=== PATIENT | female | born 1975 | race Two or more races ===

== ENCOUNTER 2025-06-12 19:13 | Emergency (ER) | payer MEDICAID, SELFPAY ==
[2025-06-12 19:31] VITALS: BP 129/61; PULSE 88; RESP 32; TEMP 36.9; O2SAT 98; BMI 30.2
--- NOTE | 2025-06-12 19:57 | PD.EDUPEX ---
Upper Extremity Injury RME/HPI General Chief Complaint: Extremity Injury, Upper Stated Complaint: SLIPPED AND FELL, RIGHT SHOULDER INJURY Time Seen by Provider: 06/12/25 19:58 Arrival date/time: 06/12/25 19:13 RME / HPI RME / HPI narrative: DR. HENAO MAIN ED EVALUATION: Patient with Hx of previous right shoulder dislocation s/p mechanical fall having sustained blunt trauma to the right shoulder and suspected recurrent dislocation. No LOC, head trauma, or other sustained injury. PMH: Negative PSH: , Shoulder stabilization surgery, Allergies: None Social: Non-smoker, Non-drinker, No illicit drug abuse Related Data Previous Rx's ?Medication ?Instructions ?Recorded naproxen 250 mg tablet 250 mg PO BID PRN pain 5 days #10 06/12/25 tabs Allergies Allergy/AdvReac Type Severity Reaction Status Date / Time No Known Allergies Allergy Verified 06/12/25 19:15 Review of Systems Review of Systems Systems Reviewed: All systems reviewed, normal except as documented ED Exam Narrative Physical exam: GEN. APPEARANCE: The patient is alert awake oriented X-3 under moderate distress c/o right should pain, right shoulder held in adduction, does not look ill/toxic. Patient has good eye contact. Patient is cooperative. VITALS: All vitals were reviewed and the pulse ox is 98%, which is normal according to my interpretation HEENT: Normocephalic, atraumatic and nontender. Pupils are equal and reactive. Oral mucosa is moist. NECK: Supple, nontender, no meningismus, no JVD. There is no thyromegaly and no lymphadenopathy. CHEST: Nontender on palpation no deformity and no crepitus. CARDIOVASCULAR: Heart regular rhythm, no murmur or gallop rub or extra beats. LUNGS: Clear to auscultation bilaterally with symmetrical chest rise. No laboring tachypnea or wheezing. No intercostal subcostal retraction. No rales and no rhonchi. ABDOMEN: Soft, flat, nontender to palpation, no guarding or rebound tenderness. There are no abnormal masses palpated. No pulsatile masses or bruits. Active and normal bowel sounds. EXTREMITIES: Right shoulder with step-off deformity at acromion, anterior prominence at humeral head, guards any movement of right shoulder, distal function intact. No edema. No cyanosis. Patient is able to move all other extremities well. SKIN: Warm and dry, no rashes noted. MUSCULOSKELETAL: No lumbar or midline bony tenderness. There is no CVA tenderness. No paraspinal muscle spasm or tenderness. NEURO: Cranial nerves II through XII grossly intact. There are no focal neurologic deficits noted. GCS is 15 PSYCHIATRIC: Patient is in normal mood and affect, cooperative. LYMPHATICS: No major lymphadenopathy noted. Course Quality Measures none Orders Category Date Time Status Insert IV NOW Care 06/12/25 19:59 Completed XR shoulder RT min 2V Stat Exams 06/12/25 20:49 Completed XR shoulder RT min 2V Stat Exams 06/12/25 21:59 Completed Midazolam Inj [Versed Inj] Med 06/12/25 19:58 Discontinued 2 mg IVP X1 ONE Morphine* Inj Med 06/12/25 19:59 Discontinued 4 mg IVP X1 ONE Vital Signs Vital signs: Vital Signs Temperature 98.4 F 06/12/25 19:31 Pulse Rate 88 06/12/25 19:31 Respiratory Rate 32 H 06/12/25 19:31 Blood Pressure 129/61 06/12/25 19:31 Pulse Oximetry (%) 98 06/12/25 19:31 Oxygen Delivery Method Room Air 06/12/25 19:31 Extremity Injury MDM Narrative MDM Narrative:: Scribe Attestation: Debra Edwards am scribing for and in the presence of Dr. Henao. Provider Notation: Although this document has been carefully reviewed, there may still be some phonetic and other typographical errors. These errors are purely grammatical due to imperfections in the software program and should not be construed in any way to compromise the substance of the patient's medical care during this visit. Patient with Hx of previous right shoulder dislocation s/p mechanical fall having sustained blunt trauma to the right shoulder and suspected recurrent dislocation. No LOC, head trauma, or other sustained injury. Please see PE findings. X-Rays demonstrate anterior subcorochoid dislocation without associated fracture. Patient medicated with morphine and versed and spontanesouly reduced. Post-reductioin x-rays adequate. Patient will be placed in sling and discharged to home with orthopedic F/U. Patient data External records reviewed:: [facility] previous records (No prior ED records available for review) Clinical information provided by:: patient Social determinants that could affect healthcare access:: none Patient has the following chronic illnesses:: None reported How is presenting disease/condition affected by chronic disease/condition?: no chronic disease Evaluation data The following diagnostics were reviewed and interpreted by me:: radiology exam(s) Lab and/or radiology exams considered but not ordered:: None Interpretation Summary: RADIOLOGY Shoulder X-Ray: FINDINGS: Anterior subcoracoid shoulder dislocation No fracture IMPRESSION: Anterior subcoracoid shoulder dislocation Post-Reduction Shoulder X-Ray: Pending official radiology report. Medications / Prescriptions Medications or Prescriptions considered but not ordered:: None Medication administrations:: Medication Administration History Discontinued Medications Midazolam HCl (Midazolam Inj 1 Mg/Ml Vial 2 Ml) 2 mg IVP X1 ONE Stop: 06/12/25 19:59 Last Admin: 06/12/25 21:58 Dose: Not Given Documented By: ALISSA Non-Admin Reason: Patient Refused Morphine Sulfate (Morphine Sulf Inj 4 Mg/Ml Vial) 4 mg IVP X1 ONE Stop: 06/12/25 20:00 Last Admin: 06/12/25 20:53 Dose: 4 mg Documented By: ALISSA See above if any Consultations Consultation(s) initiated? (list below): No Diagnosis Upper Extremity Injury Differential Diagnosis: dislocation of shoulder, fracture of humerus and fracture of clavicle Most likely diagnosis given after review of the tests above:: Dislocation of shoulder region Admission Indicated Admission indicated?: not indicated Explain why admission is indicated or not indicated:: Patient does not meet admission criteria Admission Request Was there a request for admission?: No Disposition Plan Disposition Plan: Discharge Discharge Attestation Discharge Attestation: The patient and all family members were given an opportunity to ask questions and understood the discharge instructions. Discharge instructions specifically effects, indications for sooner follow up or return to the emergency department, and the expected course of current diagnosis. Patient condition: Stable Discharge Plan Plan Patient Disposition: HOME (Self Care) Prescriptions/Referrals Prescriptions/Med Rec: New naproxen 250 mg tablet 250 mg PO BID PRN (Reason: pain) 5 Days Qty: 10 0RF Referrals: Jennifer Smith FNP [Primary Care Provider] - In 1 week Constantino Chávez MD [Physician, Orthopedics] - In 1 week Referral Note: Patient with recurrent right anterior shoulder dislocation with previous stabilization surgery. Please assess. Problem List Clinical Impression: Dislocation of shoulder region Patient/Caregiver Discharge Instructions Additional Instructions: Ice compresses elevation. Maintain sling for 3 days. Follow-up with culinary specialist as indicated. Print Language: Maltese Stand Alone Forms: Alexia Award Info., Patient Portal Info Letter
--- NOTE | 2025-06-12 20:49 | XR_ITS ---
EXAMINATION: Right shoulder 2 views TECHNIQUE: AP internal rotation Y-view right shoulder 2 views Date and time: June 12, 2025, 2052 hours INDICATIONS: Right shoulder pain and deformity today. FINDINGS: Anterior subcoracoid shoulder dislocation No fracture IMPRESSION: Anterior subcoracoid shoulder dislocation
[2025-06-12] MEDS: MORPHINE SULF INJ 4 MG/ML VIAL IVP (20:53)
--- NOTE | 2025-06-12 21:59 | XR_ITS ---
EXAMINATION: Right shoulder 2 views TECHNIQUE: AP internal rotation Y-view right shoulder 2 views Date and time: June 12, 2025, 2204 hours Indication post reduction shoulder dislocation today FINDINGS: Successful reduction shoulder dislocation No fracture No AC joint separation IMPRESSION: Successful reduction shoulder dislocation
[2025-06-12 22:42] VITALS: BP 100/55; PULSE 86; RESP 18; TEMP 38; O2SAT 95
[2025-06-12 23:01] VITALS: BP 135/85; PULSE 72; RESP 14; TEMP 37; O2SAT 99
== END 2025-06-12 23:02 | disposition home or self-care (01) ==
PROVIDERS: Emergency Provider Emergency Medicine; PCP Registered Nurse Community Health
DX: S43.004A Unspecified dislocation of right shoulder joint, initial encounter (principal); W01.0XXA Fall on same level from slipping, tripping and stumbling without subsequent striking against object, initial encounter
CPT/HCPCS: 73030; 96374; 99283; J2270